=== PATIENT | female | born 1940 | race African-American/Black ===

== ENCOUNTER 2019-09-08 23:43 | Inpatient (IN) | payer OTHER ==
--- NOTE | 2019-09-09 00:28 | PDOC ---
History of Present Illness - General Chief Complaint: Constipation Stated Complaint: CONSTIPATION Time Seen by Provider: 09/09/19 00:08 History Source: Patient Exam Limitations: No Limitations - History of Present Illness Initial Comments: 79F PMH HTN presenting with 1 week of constipation. states she has intermittently made small BMs. Denies n/v, abd pain, f/c. PO tolerant. Has been passing flatus. was recently admitted at [facility] for flu and PNA. Denies cp/ sob. NKDA. Past History - Past Medical History Allergies/Adverse Reactions: Allergies Allergy/AdvReac Type Severity Reaction Status Date / Time No Allergy Information Allergy Verified 09/08/19 23:52 Available Home Medications: Ambulatory Orders Doxycycline Hyclate 1 tab PO BID 09/09/19 Losartan/Hydrochlorothiazide [Losartan-Hctz 50-12.5 mg Tab] 1 tab PO DAILY 09/09 COPD: No HTN: Yes - Psycho Social/Smoking Cessation Hx Smoking History: Never smoked Have you smoked in the past 12 months: No Information on smoking cessation initiated: No Hx Alcohol Use: No Drug/Substance Use Hx: No Review of Systems - Review of Systems Able to Perform ROS?: Yes Comments:: CONSTITUTIONAL: Denies F / C HEENT: Denies headache RESP: Denies SOB CARD: Denies chest pain GI: endorses constipation. Denies N / V / D, abdominal pain, inability to tolerate PO *Physical Exam - Vital Signs Last Vital Signs Temp Pulse Resp BP Pulse Ox 97.1 F L 78 18 137/74 97 09/08/19 23:48 09/08/19 23:48 09/08/19 23:48 09/08/19 23:48 09/08/19 23:48 - Physical Exam GEN: Well appearing, NAD, comfortable. AAOx3. HEENT: NC/AT. No facial asymmetry. Normal voice. Supple neck w/ FROM. CV: S1/S2, RRR, no m/r/g LUNG: CTAB, no wheezes, crackles, rales, rhonchi. GI: Soft, ndnt, +BS, no guarding, no rebound. No masses. MSK: No obvious deformities of all extremities. SKIN: Warm, dry, no rashes appreciated. PSYCH: Normal mood and affect. NEURO: Moving all extremities well. ED Treatment Course - LABORATORY CBC & Chemistry Diagram: 09/09/19 01:20 09/09/19 01:20 Medical Decision Making - Medical Decision Making 09/09/19 00:28 79F c/o constipation x 1 week; passing flatus; no n/v, abd pain. Nontender exam. - CT A/P w/ con; r/o sbo - CBC, CMP - EKG - Fleet enema 09/09/19 02:03 signed out to PM team Discharge - Discharge Information Problems reviewed: Yes Clinical Impression/Diagnosis: Constipation Qualifiers: Constipation type: slow transit constipation Qualified Code(s): K59.01 - Slow transit constipation Condition: Stable - Follow up/Referral - Patient Discharge Instructions - Post Discharge Activity
[2019-09-09] MEDS ORDERED: SODIUM PHOSPHATE/NA BIPHOS 133 ML ENEMA PR ONE ×2 (00:56→12:07)
[2019-09-09 01:55] LABS: BASO % 0.8 % (0-2.0); EOS % 2.5 % (0-4.5); HEMATOCRIT 39.2 % (32.4-45.2); HEMOGLOBIN 13.1 GM/dL (10.7-15.3); LYMPH % 45.8 % (8-40); MCH 28.4 pg (25.7-33.7); MCHC 33.3 g/dl (32.0-36.0); MEAN CELL VOLUME 85.1 fl (80-96); NEUT % 41.9 % (42.8-82.8); PLATELET COUNT 154 K/MM3 (134-434); RDW 13.7 % (11.6-15.6); WHITE BLOOD COUNT 5.1 K/mm3 (4.0-10.0)
--- NOTE | 2019-09-09 01:59 | PDOC ---
*Physical Exam - Vital Signs Last Vital Signs Temp Pulse Resp BP Pulse Ox 97.1 F L 78 18 137/74 97 09/08/19 23:48 09/08/19 23:48 09/08/19 23:48 09/08/19 23:48 09/08/19 23:48 ED Treatment Course - LABORATORY CBC & Chemistry Diagram: 09/09/19 01:20 09/09/19 01:20 - Medications Given in the ED: ED Medications Discontinued Medications Generic Name Dose Route Start Last Admin Trade Name Freq PRN Reason Stop Dose Admin Sodium Phosphate 133 ml 09/09/19 00:56 09/09/19 01:57 Fleet Adult Rectal Enema - MD 09/09/19 00:57 133 ml ONCE ONE Administration Medical Decision Making - Medical Decision Making 79F w/hx HTN, pre-diabetes p/w one week constipation, no N/V, passed small a mount of stool s/p fleet enema. Pending: CT abdomen pelvis Dispo: Pending 09/09/19 05:13 Imaging workplace relations adviser read notable for small bowel ileus. Plan for admission. 09/09/19 05:57 PCP - Camron Tee 09/09/19 06:00 Discharge - Discharge Information Problems reviewed: Yes Clinical Impression/Diagnosis: Constipation Qualifiers: Constipation type: unspecified constipation type Qualified Code(s): K59.00 - Constipation, unspecified Condition: Stable Disposition: HOME - Admission No - Follow up/Referral - Patient Discharge Instructions Patient Printed Discharge Instructions: Eating a Diet Rich in Fruits and Vegetables, DI for Constipation Additional Instructions: You were seen in the ER for constipation. Your bloodwork was normal. Your CT scan was normal. Please follow up with your primary care provider as soon as possible, in the next 2-3 days. Try to eat a diet high in fiber and drink plenty of water to remain hydrated to help prevent constipation. Return to the ER if you develop high fevers, chills, weakness, confusion, chest pain, trouble breathing. - Post Discharge Activity
[2019-09-09 02:35] LABS: ALBUMIN 3.8 g/dl (3.4-5.0); BILIRUBIN,TOTAL 0.5 mg/dL (0.2-1); BLOOD UREA NITROGEN 16.9 mg/dL (7-18); CALCIUM 9.5 mg/dL (8.5-10.1); CREATININE 1.2 mg/dL (0.55-1.3); POTASSIUM 4.7 mmol/L (3.5-5.1); TOT PROT 7.7 g/dl (6.4-8.2)
[2019-09-09] MEDS ORDERED: POLYETHYLENE GLYCOL 3350 119 GM BTL PO ONE (03:18)
--- NOTE | 2019-09-09 09:03 | HP ---
CHIEF COMPLAINT: constipation PCP:Dr. Camron Tee HISTORY OF PRESENT ILLNESS: Patient is a 79 year old female with past medical history of HTN, presented to the ED due to constipation for 1 week. Patient reported she was recently admitted at [facility] 6 days ago, after feeling sick for 2 weeks, where she was diagnosed with flu and Pneumonia, and was discharged on Doxycycline and Tamiflu. After discharge 3 days ago, patient noted that she has been feeling bloated around her belly and realized she has not had a bowel movement for about a week. Patient came to the ED last night because she just felt "something is just not right". At the ED, patient was given fleet enema and had 1 small bowel movement, daughter reported about less than a cup of loose stool. PAtient denies any fever, chills, headache, nausea, vomiting, chest pain, SOB, abdominal pain, diarrhea. ER course was notable for: (1)CTAP - small bowel ileus, small pericaridial effusion, hepatic cyst (2) (3) Recent Travel:denies PAST MEDICAL HISTORY: HTN PAST SURGICAL HISTORY: L ovarian resection (>50 years ago) I&D for vaginal bleeding Family history: Mother - HTN, DM Social History: Smoking:denies Alcohol:denies Drugs: denies Allergies No Allergy Information Available Allergy (Verified 09/08/19 23:52) HOME MEDICATIONS: Home Medications Medication Instructions Recorded Doxycycline Hyclate 1 tab PO BID 09/09/19 Losartan/Hydrochlorothiazide 1 tab PO DAILY 09/09/19 [Losartan-Hctz 50-12.5 mg Tab] Oseltamivir Phosphate [Tamiflu -] 1 tab PO BID 09/09/19 REVIEW OF SYSTEMS CONSTITUTIONAL: Absent: fever, chills, diaphoresis, generalized weakness, malaise, loss of appetite, weight change HEENT: Absent: rhinorrhea, nasal congestion, throat pain, throat swelling, difficulty swallowing, mouth swelling, ear pain, eye pain, visual changes CARDIOVASCULAR: Absent: chest pain, syncope, palpitations, irregular heart rate, lightheadedness, peripheral edema RESPIRATORY: Absent: cough, shortness of breath, dyspnea with exertion, orthopnea, wheezing, stridor, hemoptysis GASTROINTESTINAL: Absent: abdominal pain, abdominal distension, nausea, vomiting, diarrhea, constipation, melena, hematochezia GENITOURINARY: Absent: dysuria, frequency, urgency, hesitancy, hematuria, flank pain, genital pain MUSCULOSKELETAL: Absent: myalgia, arthralgia, joint swelling, back pain, neck pain SKIN: Absent: rash, itching, pallor HEMATOLOGIC/IMMUNOLOGIC: Absent: easy bleeding, easy bruising, lymphadenopathy, frequent infections ENDOCRINE: Absent: unexplained weight gain, unexplained weight loss, heat intolerance, cold intolerance NEUROLOGIC: Absent: headache, focal weakness or paresthesias, dizziness, unsteady gait, seizure, mental status changes, bladder or bowel incontinence PSYCHIATRIC: Absent: anxiety, depression, suicidal or homicidal ideation, hallucinations. PHYSICAL EXAMINATION Vital Signs - 24 hr 09/08/19 23:48 Temperature 97.1 F L Pulse Rate 78 Respiratory 18 Rate Blood Pressure 137/74 O2 Sat by Pulse 97 Oximetry (%) GENERAL: Awake, alert, and fully oriented, in no acute distress. HEAD: Normal with no signs of trauma. EYES: PERRLA, EOMI, sclera anicteric, conjunctiva clear. EARS, NOSE, THROAT: Dry mucous membranes. NECK: Normal range of motion, supple. LUNGS: Breath sounds equal, clear to auscultation bilaterally. HEART: Regular rate and rhythm, normal S1 and S2 without murmur, rub or gallop. ABDOMEN: Soft, nontender, not distended, normoactive bowel sounds, no guarding, no masses. KATI: +external hemorrhoids, no masses or fissure, normal sphincter tone, loose brown stool on examining finger MUSCULOSKELETAL: Normal range of motion at all joints. LOWER EXTREMITIES: 2+ pulses, warm, well-perfused. No peripheral edema. NEUROLOGICAL: Cranial nerves II-XII intact. Normal speech. Normal gait. PSYCHIATRIC: Cooperative. Good eye contact. Appropriate mood and affect. SKIN: Warm, dry, normal turgor. Laboratory Results - last 24 hr 09/09/19 09/09/19 01:20 01:20 WBC 5.1 RBC 4.60 Hgb 13.1 Hct 39.2 MCV 85.1 MCH 28.4 MCHC 33.3 RDW 13.7 Plt Count 154 MPV 10.0 Absolute Neuts (auto) 2.2 Neutrophils % 41.9 L Lymphocytes % 45.8 H Monocytes % 9.0 Eosinophils % 2.5 Basophils % 0.8 Nucleated RBC % 0 Sodium 139 Potassium 4.7 Chloride 103 Carbon Dioxide 30 Anion Gap 5 L BUN 16.9 Creatinine 1.2 Est GFR (CKD-EPI)AfAm 50.13 Est GFR (CKD-EPI)NonAf 43.25 Random Glucose 131 H Calcium 9.5 Total Bilirubin 0.5 AST 27 ALT 35 Alkaline Phosphatase 78 Total Protein 7.7 Albumin 3.8 ASSESSMENT/PLAN: Patient is a 79 year old female with past medical history of HTN, presented to the ED due to constipation for 1 week. #Small bowel ileus likely 2/2 constipation -CTAP - small bowel ileus on imaging provider relations manager, awaiting final read -IVF -NPO, will advance as tolerated -stool softeners, enema -Surgery (Dr. Foster) consulted. #HTN -BP stable -continue home Losartan/HCTZ #FEN -IV LR @75cc/hr -Eectrolytes wnl, routine bmp monitoring -NPO #Prophylaxis -SCDs #Disposition -full code -admit to med surg Visit type - Emergency Visit Emergency Visit: Yes ED Registration Date: 09/09/19 Care time: The patient presented to the Emergency Department on the above date and was hospitalized for further evaluation of their emergent condition. - New Patient This patient is new to me today: Yes Date on this admission: 09/09/19 - Critical Care Critical Care patient: No ATTENDING PHYSICIAN STATEMENT I saw and evaluated the patient. I reviewed the resident's note and discussed the case with the resident. I agree with the resident's findings and plan as documented. SUBJECTIVE: OBJECTIVE: ASSESSMENT AND PLAN:
--- NOTE | 2019-09-09 09:13 | EKG ---
Test Reason : Blood Pressure : / mmHG Vent. Rate : 091 BPM Atrial Rate : 091 BPM P-R Int : 168 ms QRS Dur : 078 ms QT Int : 348 ms P-R-T Axes : 069 -25 067 degrees QTc Int : 428 ms NORMAL SINUS RHYTHM WITH SINUS ARRHYTHMIA Normal ECG NO PREVIOUS ECGS AVAILABLE Confirmed by Allyssa Staley ([id number]) on 09/09/2019 9:12:36 AM Referred By: Confirmed By:Allyssa Staley
[2019-09-09] MEDS: LACTATED RINGERS SOLUTION 1,000 ML IV SCH ×2 (11:16→16:59)
[2019-09-09] MEDS: OSELTAMIVIR PHOSPHATE 30 MG CAPSULE PO SCH ×2 (13:59→22:17)
[2019-09-09] MEDS: DOXYCYCLINE HYCLATE 100 MG CAPSULE PO SCH ×2 (13:59→17:10)
--- NOTE | 2019-09-09 18:12 | CONSULT ---
Consult Consult Specialty:: General Surgery Referred by:: Eloy Fisher Reason for Consultation:: constipation/ileus - History of Present Illness Chief Complaint: constipation, no BM for 6-7 days History of Present Illness: 79yo obese F with HTN, HLD, ?borderline DM (not on DM meds), was discharged from [facility] Monday after entering Wed for URI complaints/nasal symptoms, diagnosed with flu and pneumonia, to complete her medications at home. She reports not having moved her bowels since prior to hospital admission last week, and came to ER c/o constipation. Denies abd pain, N/V, urinary problems, F/C associated. She has had Fleet's enema initially with little result , CT with no oral contrast showing mild ileus and colon full of stool, but less distally, and miralax and colace today. Surgery was asked to assess. She is seen and examined in ER annex area, and reports having started to move her bowels more today. Still not feeling like having much to drink/eat - clears for lunch were "too sweet," she just had some tea, and felt a bit nauseated so didn't have more. She denies pain. She does have a small cough intermittently. She states she has never had a problem with constipation before at home. - History Source History Provided By: Patient Limitations to Obtaining History: No Limitations - Past Medical History Cardio/Vascular: Yes: HTN, Hyperlipdemia Pulmonary: Yes: Pneumonia, Other (flu) Reproductive: Yes: Postmenopausal Endocrine: Yes: Diabetes Mellitus (borderline but no meds) - Past Surgical History Past Surgical History: Yes: Oopherectomy (in teens, Pfannenstiel) - Alcohol/Substance Use Hx Alcohol Use: No History of Substance Use: reports: None - Smoking History Smoking history: Former smoker Have you smoked in the past 12 months: No If you are a former smoker, when did you quit?: more than 30 yrs ago - Social History ADL: Independent Home Medications - Allergies Allergies/Adverse Reactions: Allergies Allergy/AdvReac Type Severity Reaction Status Date / Time No Allergy Information Allergy Verified 09/08/19 23:52 Available - Home Medications Home Medications: Ambulatory Orders Doxycycline Hyclate 1 tab PO BID 09/09/19 Losartan/Hydrochlorothiazide [Losartan-Hctz 50-12.5 mg Tab] 1 tab PO DAILY 09/09 Oseltamivir Phosphate [Tamiflu -] 1 tab PO BID 09/09/19 Family Medical History Family History: Unremarkable (noncontributory) Review of Systems - Review of Systems Constitutional: denies: Chills, Fever Eyes: reports: Other (wears glasses for distance). denies: Recent Change in Vision HENT: reports: Nasal Congestion (and runniness). denies: Difficult Swallowing, Throat Pain (but clearing throat, + phlegm) Neck: denies: Swollen Glands, Tenderness Cardiovascular: denies: Chest Pain, Palpitations Respiratory: reports: Cough (dry). denies: SOB Gastrointestinal: reports: Constipation. denies: Abdominal Pain, Diarrhea, Nausea, Vomiting Genitourinary: denies: Burning, Dysuria Musculoskeletal: denies: Back Pain, Joint Pain, Muscle Pain Integumentary: denies: Change in Color, Rash Neurological: denies: Dizziness, Headache Physical Exam Vital Signs: Vital Signs Temperature 97.1 F L 09/08/19 23:48 Pulse Rate 78 09/08/19 23:48 Respiratory Rate 18 09/08/19 23:48 Blood Pressure 137/74 09/08/19 23:48 O2 Sat by Pulse Oximetry (%) 97 09/09/19 16:30 Constitutional: Yes: No Distress, Calm, Obese Eyes: Yes: Conjunctiva Clear, EOM Intact HENT: Yes: Atraumatic, Normocephalic Neck: Yes: Supple, Trachea Midline Cardiovascular: Yes: Regular Rate and Rhythm Respiratory: Yes: Regular, CTA Bilaterally Gastrointestinal: Yes: Normal Bowel Sounds, Soft, Abdomen, Obese. No: Tenderness, Tenderness, Epigastrium ...Rectal Exam: Yes: Hemorrhoids/External, Sphincter Tone Normal, Other (empty vault, nothing on gloved finger) Renal/: No: CVA Tenderness - Left, CVA Tenderness - Right Musculoskeletal: No: Back Pain, Joint Stiffness, Joint Swelling Extremities: No: Cool, Cyanosis Edema: No Peripheral Pulses WNL: Yes Integumentary: No: Jaundice, Rash Neurological: Yes: Alert, Oriented. No: Unsteady Gait Psychiatric: Yes: Alert, Oriented Labs: CBC, BMP 09/09/19 01:20 09/09/19 01:20 CMP Sodium 139 mmol/L (136-145) 09/09/19 01:20 Potassium 4.7 mmol/L (3.5-5.1) 09/09/19 01:20 Chloride 103 mmol/L (98-107) 09/09/19 01:20 Carbon Dioxide 30 mmol/L (21-32) 09/09/19 01:20 Anion Gap 5 MMOL/L (8-16) L 09/09/19 01:20 BUN 16.9 mg/dL (7-18) 09/09/19 01:20 Creatinine 1.2 mg/dL (0.55-1.3) 09/09/19 01:20 Est GFR (CKD-EPI)AfAm 50.13 09/09/19 01:20 Est GFR (CKD-EPI)NonAf 43.25 09/09/19 01:20 Random Glucose 131 mg/dL (74-106) H 09/09/19 01:20 Calcium 9.5 mg/dL (8.5-10.1) 09/09/19 01:20 Total Bilirubin 0.5 mg/dL (0.2-1) 09/09/19 01:20 AST 27 U/L (15-37) 09/09/19 01:20 ALT 35 U/L (13-61) 09/09/19 01:20 Alkaline Phosphatase 78 U/L (45-117) 09/09/19 01:20 Total Protein 7.7 g/dl (6.4-8.2) 09/09/19 01:20 Albumin 3.8 g/dl (3.4-5.0) 09/09/19 01:20 Imaging - Results Cat Scan: Report Reviewed, Image Reviewed (colon full of stool, less distally/ not much in rectum, mildly dilated SB loops, no oral contrast used) Problem List - Problems (1) Constipation Assessment/Plan: not a chronic problem for this patient has started to move her bowels more today Fleet's enemas unlikely to be of much benefit will give Senna x 2 tabs now on clears, but with some nausea at times, not much appetite yet presuming bowel function continues, will check AXR/KUB in am to assess residual stool burden recommend adding probiotic/bacid while pt is completing antibiotic and for at least a few days after stool softeners, prunes and fiber require adequate water intake to work well may need prn dulcolax at home for any night she has not had a BM that day pt should f/u with PMD soon after d/c Thank you for the opportunity to participate in the care of this patient. Code(s): K59.00 - CONSTIPATION, UNSPECIFIED Qualifiers: Constipation type: slow transit constipation Qualified Code(s): K59.01 - Slow transit constipation (2) Flu Assessment/Plan: completing Tamiflu tonight Code(s): J11.1 - FLU DUE TO UNIDENTIFIED INFLUENZA VIRUS W OTH RESP MANIFEST (3) Pneumonia Assessment/Plan: still on doxycycline Code(s): J18.9 - PNEUMONIA, UNSPECIFIED ORGANISM Qualifiers: Pneumonia type: due to unspecified organism Laterality: unspecified laterality Lung location: unspecified part of lung Qualified Code(s): J18.9 - Pneumonia, unspecified organism (4) Class 2 obesity due to excess calories with body mass index (BMI) of 35.0 to 35.9 in adult Code(s): E66.09 - OTHER OBESITY DUE TO EXCESS CALORIES; Z68.35 - BODY MASS INDEX (BMI) 35.0-35.9, ADULT Qualifiers: Serious obesity comorbidity presence: without serious comorbidity Qualified Code(s): E66.09 - Other obesity due to excess calories; Z68.35 - Body mass index (BMI) 35.0-35.9, adult
--- NOTE | 2019-09-09 18:14 | PN ---
Teaching Attending Note Name of Resident: Shannon Cavazos ATTENDING PHYSICIAN STATEMENT I saw and evaluated the patient. I reviewed the resident's note and discussed the case with the resident. I agree with the resident's findings and plan as documented. SUBJECTIVE: CC: constipation HPI: very pleasant 79 y/o lady with h/o HTN, and recent hospitalization ( 09/04-) for flu and PNA, who presented with no BM for 1 week. She denies abd pain, N/V, or bloating. she does not have a h/o constipation. She was discharged on Tamiflu and doxy. She denies any fever, chills, dysuria, diarrhea, or any other sx. She feels well otherwise. OBJECTIVE: NAD, awake, cooperative and pleasant. MMM, EOMI, no LAP inneck. CV : RRR, no MRG Lungs: CTAB Abd: obese, soft, NT, ND , NL BS . Ext: No edema or erythema on upper or lower extremities. small black nevis on one of the toes. Neuro: EOMI, round equal pupils, reactive to light. No facial droop. strength 5/ 5 in upper or lower extremities proximally and distally. Imaging: CT scan with dilation of small bowel loops . ASSESSMENT AND PLAN: Very pleasant 79 y/o lady with h/o HTN, and recent hospitalization ( 09/04-04/06) for flu and PNA, who presented with no BM for 1 week 1- Constipation : with resultant dilation in small bowel . - gave enema. BMs achieved. - cont with bowel regimen . mag citrate , senna and miralax - repeat KUB in am - Dr. galdamez was consulted 2- Recent diagnosis of PNA and flu - tonight is the last dose of Tamiflu - cont doxy , last dose is 09/11 evening - stable respiratory conti 3- H/o HTN: cont Losartan/HCTZ 4- Incidental finding of pericardial effusion on CT scan : will get Echo 5- Fibroid uterus : f/u with [facility] Possible dc tomorrow. D/w patient and her daughter at bedside.
[2019-09-09] MEDS ORDERED: MAGNESIUM CITRATE 300 ML BOTTLE PO ONE (18:20)
[2019-09-09] MEDS ORDERED: SENNOSIDES 8.6MG TABLET (FP) PO ONE (18:26)
[2019-09-09] MEDS: DOCUSATE SODIUM 100 MG CAPSULE (FP) PO SCH ×2 (20:02→22:17)
[2019-09-09] MEDS ORDERED: SENNOSIDES 8.6MG TABLET (FP) PO SCH (22:00)
[2019-09-09 23:42] VITALS: BMI 35.9
[2019-09-10] MEDS: DOCUSATE SODIUM 100 MG CAPSULE (FP) PO SCH ×2 (06:10→14:53)
[2019-09-10 07:48] LABS: BASO % 0.6 % (0-2.0); EOS % 3.4 % (0-4.5); MCH 28.6 pg (25.7-33.7); MCHC 33.4 g/dl (32.0-36.0); MEAN CELL VOLUME 85.6 fl (80-96); MONO % 10.6 % (3.8-10.2); NEUT % 36.4 % (42.8-82.8); PLATELET COUNT 138 K/MM3 (134-434); RDW 13.9 % (11.6-15.6); WHITE BLOOD COUNT 4.2 K/mm3 (4.0-10.0)
[2019-09-10 08:26] LABS: ALBUMIN 3.2 g/dl (3.4-5.0); BILIRUBIN,TOTAL 0.8 mg/dL (0.2-1); BLOOD UREA NITROGEN 11.9 mg/dL (7-18); MAGNESIUM 2.1 mg/dL (1.8-2.4); POTASSIUM 4.2 mmol/L (3.5-5.1); TOT PROT 6.4 g/dl (6.4-8.2)
[2019-09-10] MEDS ORDERED: POLYETHYLENE GLYCOL 3350 119 GM BTL PO SCH (10:00)
[2019-09-10] MEDS ORDERED: LACTOBACILLUS ACIDOPHILUS 1 TABLET PO SCH (10:00)
[2019-09-10] MEDS ORDERED: LOSARTAN 50MG/HCTZ 12.5MG 1 TAB (FP) PO SCH (10:00)
--- NOTE | 2019-09-10 10:12 | ECHO ---
Name: PRIMO ELLIS J Exam:Adult Echocardiogram Study Date: 09/10/2019 07:54 AM Age: 79 yrs Height: 66 in Weight: 219 lb BSA: 2.1 m2 MMode/2D Measurements & Calculations IVSd: 1.5 cm Ao root diam: 2.3 cm LVIDd: 4.2 cm LA dimension: 3.8 cm LVIDs: 2.8 cm ACS: 1.8 cm LVPWd: 0.98 cm EDV(Teich): 77.9 ml LVOT diam: 1.9 cm ESV(Teich): 29.7 ml RV S Wyatt: 12.7 cm/sec Doppler Measurements & Calculations MV E max wyatt: 76.0 cm/sec Ao V2 max: 156.4 cm/sec MV A max wyatt: 99.7 cm/sec Ao max P.8 mmHg MV E/A: 0.76 Ao V2 mean: 102.3 cm/sec MV dec time: 0.25 sec Ao mean P.8 mmHg Ao V2 VTI: 33.9 cm YUMIKO(I,D): 2.2 cm2 YUMIKO(V,D): 2.2 cm2 LV V1 max P.6 mmHg SV(LVOT): 75.2 ml LV V1 mean P.3 mmHg LV V1 max: 118.0 cm/sec LV V1 mean: 67.7 cm/sec LV V1 VTI: 25.5 cm TR max wyatt: 192.1 cm/sec PA V2 max: 78.5 cm/sec TR max P.8 mmHg PA max P.5 mmHg Med Peak E' Wyatt: 7.8 cm/sec Med E/e': 9.7 Lat Peak E' Wyatt: 6.5 cm/sec Lat E/e': 11.6 Procedure A complete two-dimensional transthoracic echocardiogram was performed (2D, M-mode, Doppler and color flow Doppler). Left Ventricle The left ventricular size, thickness and function are normal. Ejection Fraction = 55%. E/A reversal c onsistent with but not diagnostic of poor LV compliance. The left ventricular wall motion is normal. Right Ventricle The right ventricle is normal in size and function. Atria Normal left and right atrial size and function. Mitral Valve There is mild mitral annular calcification. There is trace mitral regurgitation. Tricuspid Valve The tricuspid valve is normal in structure and function. There is trace tricuspid regurgitation. Righ t ventricular systolic pressure is 20 mmhg. Assuming the RA pressure is 5 mmHg. Aortic Valve There is mild to moderate aortic valve thickening. Pulmonic Valve The pulmonic valve is normal in structure and function. Great Vessels The aortic root is normal size. Pericardium/Pleura Trivial pericardial effusion not hemodynamically significant. There is no pleural effusion. Interpretation Summary This degree of valvular regurgitation is within normal limits. The left ventricular size, thickness a nd function are normal Ejection Fraction = 55%. Trivial pericardial effusion not hemodynamically significant MD Roberth Evans 09/10/2019 10:11 AM
[2019-09-10] MEDS ORDERED: PT OWN MED DRAWER 7, Y5N ONE (10:50)
[2019-09-10] MEDS: DOXYCYCLINE HYCLATE 100 MG CAPSULE PO SCH ×2 (10:54→16:59)
--- NOTE | 2019-09-10 12:37 | PN ---
Progress Note, Physician History of Present Illness: Pt with constipation, has had multiple BMs since yesterday, after additional medications including laxative. Continues to feel better. About to start back on solid diet per primary team. AXR this morning shows no significant residual stool in colon, air in SB and LB. Pt seen and examined in bed. Denies pain. Son is present as well. - Current Medication List Current Medications: Active Medications Docusate Sodium (Colace -) 100 mg PO TID [facility] Last Admin: 09/10/19 06:10 Dose: 100 mg Doxycycline Hyclate (Vibramycin -) 100 mg PO BID@1000,1800 [facility] Stop: 09/10/19 18:01 Last Admin: 09/10/19 10:54 Dose: 100 mg HCTZ/Losartan Potassium (Hyzaar -) 1 tab PO DAILY [facility] Last Admin: 09/10/19 10:55 Dose: 1 tab Lactobacillus Acidophilus (Bacid -) 1 tab PO DAILY [facility] Last Admin: 09/10/19 10:55 Dose: 1 tab Polyethylene Glycol (Miralax (For Daily Use) -) 17 gm PO DAILY [facility] Last Admin: 09/10/19 10:55 Dose: 17 grams - Objective Vital Signs: Vital Signs Temperature 98.0 F 09/10/19 11:03 Pulse Rate 77 09/10/19 11:03 Respiratory Rate 18 09/10/19 11:03 Blood Pressure 160/87 09/10/19 12:20 O2 Sat by Pulse Oximetry (%) 98 09/09/19 21:00 Constitutional: Yes: No Distress, Calm, Obese Eyes: Yes: Conjunctiva Clear, EOM Intact HENT: Yes: Atraumatic, Normocephalic Gastrointestinal: Yes: Soft, Abdomen, Obese. No: Tenderness Extremities: No: Cool, Cyanosis Integumentary: No: Jaundice, Rash Neurological: Yes: Alert, Oriented Labs: CBC, BMP 09/10/19 06:50 09/10/19 06:50 - ....Imaging X-ray: Report Reviewed, Image Reviewed (AXR with no sign constipation or impaction, most of colon now with gas, also some SB loops with air as well.) Problem List - Problems (1) Constipation Assessment/Plan: not a chronic problem for this patient moving bowels with medication, including softeners and laxative dose yesterday starting solid diet would continue probiotic/bacid while pt is completing antibiotic and for at least a few days after stool softeners, prunes and fiber require adequate water intake to work well encouraged adequate fluid intake at home may need prn dulcolax at home for any night she has not had a BM that day pt should f/u with PMD soon after d/c will sign off discussed with Dr. Orozco and team in person Thank you for the opportunity to participate in the care of this patient. Code(s): K59.00 - CONSTIPATION, UNSPECIFIED Qualifiers: Constipation type: slow transit constipation Qualified Code(s): K59.01 - Slow transit constipation (2) Flu Code(s): J11.1 - FLU DUE TO UNIDENTIFIED INFLUENZA VIRUS W OTH RESP MANIFEST (3) Pneumonia Code(s): J18.9 - PNEUMONIA, UNSPECIFIED ORGANISM Qualifiers: Pneumonia type: due to unspecified organism Laterality: unspecified laterality Lung location: unspecified part of lung Qualified Code(s): J18.9 - Pneumonia, unspecified organism (4) Class 2 obesity due to excess calories with body mass index (BMI) of 35.0 to 35.9 in adult Code(s): E66.09 - OTHER OBESITY DUE TO EXCESS CALORIES; Z68.35 - BODY MASS INDEX (BMI) 35.0-35.9, ADULT Qualifiers: Serious obesity comorbidity presence: without serious comorbidity Qualified Code(s): E66.09 - Other obesity due to excess calories; Z68.35 - Body mass index (BMI) 35.0-35.9, adult
--- NOTE | 2019-09-10 16:01 | PN ---
Teaching Attending Note Name of Resident: Felipe Brian ATTENDING PHYSICIAN STATEMENT I saw and evaluated the patient. I reviewed the resident's note and discussed the case with the resident. I agree with the resident's findings and plan as documented. SUBJECTIVE: no fever or chills. no N/V. tolerated diet and had BMS. OBJECTIVE: NAD, awake, cooperative and pleasant. MMM, CV : RRR, no MRG Lungs: CTAB Abd: obese, soft, NT, ND , NL BS. Ext: No edema or erythema on upper or lower extremities. ASSESSMENT AND PLAN: Very pleasant 79 y/o lady with h/o HTN, and recent hospitalization ( 09/04-04/06) for flu and PNA, who presented with no BM for 1 week 1- Constipation :resolved. KUB reviewed. cont bowel regimen after dc 2- Recent diagnosis of PNA and flu - finished Tamifllu - cont doxy , last dose is 09/11 evening 3- H/o HTN: cont Losartan/HCTZ. she shoudl check Her BP daily and report to her pCP incase a dose increase is necessarty 4- Incidental finding of pericardial effusion on CT scan :echo reviewed. repeat echo as out pt 5- Fibroid uterus : f/u with PIT HOIST OPERATOR dc home. d/w her
[2019-09-10 18:04] VITALS: BP 138/74; PULSE 81; TEMP 98
--- NOTE | 2019-09-10 19:41 | DS ---
Physical Exam: SUBJECTIVE: Patient seen and examined at bedside. pt noted improvement OBJECTIVE: Vital Signs Period Temp Pulse Resp BP Sys/Lord Pulse Ox Last 24 Hr 97.9 F-98.2 F 76-84 18-20 114-164/62-110 98 PHYSICAL EXAM GENERAL: The patient is awake, alert, and fully oriented, in no acute distress. HEAD: Normal with no signs of trauma. EYES: extraocular movements intact LUNGS: Breath sounds equal, clear to auscultation bilaterally, no wheezes, no crackles, no accessory muscle use. HEART: Regular rate and rhythm, S1, S2 ABDOMEN: Soft, nontender, nondistended, normoactive bowel sounds, no guarding EXTREMITIES: 2+ pulses, warm, well-perfused, no edema. SKIN: Warm, dry, normal turgor, no rashes or lesions noted. LABS Laboratory Results - last 24 hr 09/10/19 09/10/19 06:50 06:50 WBC 4.2 RBC 4.20 Hgb 12.0 Hct 36.0 MCV 85.6 MCH 28.6 MCHC 33.4 RDW 13.9 Plt Count 138 MPV 10.0 Absolute Neuts (auto) 1.5 Neutrophils % 36.4 L Lymphocytes % 49.0 H Monocytes % 10.6 H Eosinophils % 3.4 Basophils % 0.6 Nucleated RBC % 0 Sodium 142 Potassium 4.2 Chloride 108 H Carbon Dioxide 30 Anion Gap 5 L BUN 11.9 Creatinine 1.0 Est GFR (CKD-EPI)AfAm 62.49 Est GFR (CKD-EPI)NonAf 53.92 Random Glucose 103 Calcium 9.0 Magnesium 2.1 Total Bilirubin 0.8 AST 18 ALT 29 Alkaline Phosphatase 65 Total Protein 6.4 Albumin 3.2 L TSH 1.21 HOSPITAL COURSE: Date of Admission:09/09/19 79 yo F PMH of HTN presents following a recent hospitalization for flu and pneumonia . pt presents with constipation, states hasnt had BM in 1 week . pt was started on a bowl regimen and encouraged to continue on DC. pt was continued on doxycycline and last dose is 09/11 evening. pt completed tamiflu. pt was continued on her home medications and counselled to f/u with PMD outpt. Pt had CT scan showing pericardial effusion and is advised to have an echo outpt. pt also noted to have a fibroid uterus and should f/u outpt with personal injury paralegal. pt is discharged back home. Date of Discharge: 09/10/19 Minutes to complete discharge: 35 Discharge Summary Problems reviewed: Yes Reason For Visit: OBSTRUCTION ILEUS OF SMALL INTEST DUE TO IMPACTION Condition: Improved - Instructions Diet, Activity, Other Instructions: You came into the hospital due to constipation. While you were in the hospital you had a CT scan of your abdomen showing you had an ileus which is causing your constipation. The imaging also shows that your uterus has fibroids. The repeat abdominal X-ray showed resolution of the ileus. You were treated with Miralax, Senna, Colace and an enema. You had an Echocardiogram showing that you have normal heart function. Medications We started you on Colace and Senna Daily. We started you on an " NEEDED" ducolax suppositories to use when you feel constipated (no bowel movement in 3 days). Please take Bacid (probiotic) while on antibiotics only You should continue to take your Doxycycline twice a day. Your last dose is tomorrow evening. Please Continue to take your other medications as prescribed. Please follow up with your primary care physician, Dr. Tee, in 1 week to monitor your improvement. Please follow up with your Rehabilitation Psychologist, within 2 weeks to monitor your fibroids. You need a repeat echo in 4 weeks to follow up on the small, insignificant amount of fluids around the heart If you have any new, worsening, or concerning symptoms please return to the ED or call 911. check your blood pressure daily. if it remains > 150 most of the time, please notify your PCP to increase your blood pressure meds Referrals: Camron Tee [Non Staff, Medical] - Disposition: HOME - Home Medications Comprehensive Discharge Medication List: Ambulatory Orders Doxycycline Hyclate 1 tab PO BID 09/09/19 Losartan/Hydrochlorothiazide [Losartan-Hctz 50-12.5 mg Tab] 1 tab PO DAILY 09/09/19 Bisacodyl Suppository [Dulcolax Suppository -] 10 mg RC DAILY PRN #7 supp.rect 09/10/19 Docusate Sodium [Colace -] 100 mg PO DAILY #30 capsule 09/10/19 Lactobacillus Acidophilus [Bacid -] 1 tab PO DAILY #5 tab 09/10/19 Medical Supply, Miscellaneous [Blood Pressure Cuff] 1 each MC DAILY #1 each 09/10/19 Sennosides [Senna -] 1 tab PO HS #30 tablet 09/10/19 This patient is new to me today: No Emergency Visit: No Critical Care patient: No - Discharge Referral Referred to [facility] Med [facility] No ATTENDING PHYSICIAN STATEMENT I saw and evaluated the patient. I reviewed the resident's note and discussed the case with the resident. I agree with the resident's findings and plan as documented. SUBJECTIVE: OBJECTIVE: ASSESSMENT AND PLAN:
== END 2019-09-10 18:55 | disposition home or self-care (01) | DRG 391 ==
LOC: JER 23:43 → JERBED 09-09 06:52 → J8W 09-09 22:54
PROVIDERS: ADMIT Internal Medicine; ATTEND Internal Medicine
DX: K59.01 Slow transit constipation (principal); J11.00 Influenza due to unidentified influenza virus with unspecified type of pneumonia; I31.3 Pericardial effusion (noninflammatory); K56.7 Ileus, unspecified; D25.9 Leiomyoma of uterus, unspecified; E66.09 Other obesity due to excess calories; Z68.35 Body mass index [BMI] 35.0-35.9, adult
CPT/HCPCS: 36415; 74018-TC-FY; 74177-TC; 80053; 83735; 84443; 85025; 93005; 93010; 93306-TC; 97116-GP; 97161-GP; 99285-25; Q9967

== ENCOUNTER 2024-07-11 12:19 | Emergency (ER) | payer OTHER ==
[2024-07-11 13:43] VITALS: BP 130/74; PULSE 79; RESP 16; TEMP 97.1; BMI 35.0
[2024-07-11] MEDS ORDERED: FLUCONAZOLE 150 MG TABLET PO ONE (15:45)
[2024-07-11] MEDS: FLUCONAZOLE 150 MG TABLET PO ONE (15:46)
== END 2024-07-11 16:46 | disposition home or self-care (01) ==
LOC: JER 12:19
DX: R21 Rash and other nonspecific skin eruption (principal); B37.31 Acute candidiasis of vulva and vagina
CPT/HCPCS: 99283-25